=== PATIENT | female | born 1995 | race Caucasian/White ===

== ENCOUNTER 2016-11-14 12:30 | Emergency (ER) | payer BC ==
[~2016-11-14] VITALS: Ht 167.6 cm; Wt 77.1 kg
--- NOTE | 2016-11-14 12:30 | NUR ---
Pt brought to bed 1 by ACLS and report endorsed to Bal BUI
--- NOTE | 2016-11-14 12:31 | NUR ---
ER at bedside examining patient.
[2016-11-14 12:34] VITALS: BP_SYST 124
--- NOTE | 2016-11-14 12:39 | NUR ---
Pt was brought in by ACLS due to altered level of consiousness in her parked car in the [facility] parking lot, a security operations manager was trying to wake pt and had to break the window open before the pt woke up. Pt is alert and oriented while in the ER and able to ambulate into bed 1. No other injuries/complaints per pt or noted. Addendum: 11/14/16 at 1322 by ALYCIA EMT states that the pt was found in car with a needle stuck in her arm.
--- NOTE | 2016-11-14 12:56 | NUR ---
Pt on stable condition, VS WNL, A&Ox4.
--- NOTE | 2016-11-14 13:05 | NUR ---
Pt ambulated to make a phone call, aware, pt on stable condition, VS WNL.
--- NOTE | 2016-11-14 14:24 | NUR ---
Patient given written and verbal discharge instructions and verbalizes understanding. ER MD discussed with patient the results and treatment provided. Patient in stable condition. ID arm band removed. NoRx given. Patient educated on pain management and to follow up with PMD. Pain Scale 0/10. Opportunity for questions provided and answered.
[2016-11-14 14:35] VITALS: BP_SYST 120
== END 2016-11-14 14:24 | disposition home or self-care (01) ==
LOC: SED 12:30
DX: F11.10 Opioid abuse, uncomplicated (principal)
CPT/HCPCS: 99283